=== PATIENT | female | born 1985 | race Two or more races ===

== ENCOUNTER 2021-12-12 23:37 | Emergency (ER) | payer OTHER, SELFPAY ==
--- NOTE | ~2021-12-12 | XR_ITS ---
EXAMINATION: XR ANKLE, LEFT CLINICAL INFORMATION: Fall. COMPARISON: None TECHNIQUE: AP, lateral, and mortise views of the left ankle. FINDINGS: Significant soft tissue swelling around the ankle. Asymmetric widening of the medial clear space of the ankle mortise with a tiny osseous fragment inferior to the medial malleolus raising the possibility of an avulsion injury. No other fractures. XR/XR ankle LT 2V IMPRESSION: Asymmetric widening of the medial clear space concerning for disruption of the ankle mortise. Recommend correlation with mortise stress views if possible. Questionable tiny avulsion injury of the medial malleolus.
--- NOTE | ~2021-12-12 | XR_ITS ---
EXAMINATION: XR ANKLE, LEFT CLINICAL INFORMATION: Fall, additional views COMPARISON: 12/13/2021 TECHNIQUE: AP, lateral, and mortise views of the left ankle. XR/XR ankle LT 2V FINDINGS/IMPRESSION: There is borderline widening of the medial clear space, similar to prior, which may reflect ligamentous injury. Redemonstrated tiny osseous density adjacent to the tip of the medial malleolus. Soft tissue swelling redemonstrated, most prominent laterally.
[2021-12-13 00:07] VITALS: BP 133/80; PULSE 97; RESP 16; TEMP 36.9; O2SAT 96; BMI 49.1
--- NOTE | 2021-12-13 00:34 | ED_ITS ---
HPI - Extremity Injury (Lower) General Chief Complaint: Extremity Injury, Lower Stated Complaint: left leg swollen, fall in shower Time Seen by Provider: 12/13/21 00:34 History of Present Illness HPI Narrative: Patient 36 years old status post accidental fall complaining of pain to the left ankle. There is no head injury there is no nausea no vomiting. Does not think she is . She has not been sexually active since she burped. Patient from home. No head injury. The pain is worsened with movement of the ankle. Unable to bear weight. Patient from home. Related Data Previous Rx's Medication Instructions Recorded ibuprofen 400 mg tablet 400 mg PO Q6H PRN #20 tab 12/13/21 Allergies Allergy/AdvReac Type Severity Reaction Status Date / Time No Known Allergies Allergy Verified 12/13/21 00:41 Review of Systems Review of Systems: Positive pain to the left ankle No bowel urinary incontinence No focal weakness Yes all other systems are reviewed and are negative FOR[facility], [facility] Past Medical History Attestation statement: The following information was validated with the patient. Social History Social History Advance Directives: No Advance Directives Information Provided: No Physical Exam Vital Signs: Vital Signs: Last Vital Signs Temp 98.5 F 12/13/21 00:07 Pulse 97 12/13/21 00:07 Resp 16 12/13/21 00:07 BP 133/80 12/13/21 00:07 Pulse Ox 96 12/13/21 00:07 BMI result Body Mass Index 49.1 Appearance: Alert. Oriented X3. No acute distress. Eyes: Pupils equal, round and reactive to light. ENT: Pharynx normal. Neck: Normal inspection. Neck supple. No lymph nodes noted. No crepitus CVS: Normal heart rate and rhythm. Pulses normal. Normal S1 and S2 Respiratory: No respiratory distress. Breath sounds normal. No Wheezing. No rales Abdomen: Soft and nontender. No rigidity. No distention. good BS x4 Skin: Skin warm and dry. Normal skin color. Normal skin turgor. Extremities: No lower extremity edema. Neurovascular intact to all extremities. Positive swelling to the left ankle there is pain on palpation of the lateral malleolus. No Lacerations. No Rash Neuro: Oriented X 3. No motor deficit. No sensory deficit. Moving all extermities. No slurred speech MDM - Extremity Injury (Lower) MDM Narrative Medical decision making narrative: Positive swelling to the lateral malleolus pain on palpation of the posterior malleolus. Patient's x-ray showed a possible widening of the mortise. Will place in the Aircast and crutches. Will have patient follow nonweightbearing. Ortho follow-up. In stable condition. Differential Diagnosis Differential diagnosis: Likely ankle sprain and strain Lab Data Attestation: I reviewed the patient's lab results. Discharge Plan Discharge Clinical Impression: Ankle sprain and strain, Ankle fracture Patient Disposition: Home, Self-Care Instructions: Ankle Sprain (DC), Sprain (ED), R.I.C.E. Treatment (ED), Ankle Fracture (DC) Additional Instructions: Air cast and crutches for comfort. Ice. Motrin for pain. Nonweightbearing. Follow-up with orthopedic on an outpatient basis Prescriptions: New ibuprofen 400 mg tablet 400 mg PO Q6H PRN (Reason: pain) Qty: 20 0RF Referrals: Alan Ross MD [Physician] - 2 days
== END 2021-12-13 02:13 | disposition home or self-care (01) ==
LOC: HO.ED 12-13 00:43
PROVIDERS: Emergency Provider Emergency Medicine Emergency Medical Services
DX: S82.55XA Nondisplaced fracture of medial malleolus of left tibia, initial encounter for closed fracture (principal); S93.492A Sprain of other ligament of left ankle, initial encounter; S96.912A Strain of unspecified muscle and tendon at ankle and foot level, left foot, initial encounter; W18.2XXA Fall in (into) shower or empty bathtub, initial encounter; Y93.E1 Activity, personal bathing and showering; Y92.031 Bathroom in apartment as the place of occurrence of the external cause; Y99.9 Unspecified external cause status
CPT/HCPCS: 73600; 99283

== ENCOUNTER 2021-12-20 11:16 | Emergency (ER) | payer OTHER, SELFPAY ==
--- NOTE | 2021-12-20 12:29 | PC.NURSE ---
Patient stated she had been sent in by primary care doctor for a cast to ankle , unsatisfied with interactions with orthopedics followup .Patient refused vitals and initial assessment to be done by nurse . She stated she had been seen a week ago and her ankle had gotten worse demanded a cast to be placed . I explained that she would need to be assessed by provider that was on today and that we do not place casts in the ED but if the provider determines the need we would place a splint and she could follow up with orthopedics for cast placement . She felt she would be wasting her time getting reevaluated and not having a cast placed in the ED . Patient preceded to get up with crutches and walk out of ED department.
== END 2021-12-20 12:30 | disposition left against medical advice (07) ==
LOC: HO.ED 12:44
PROVIDERS: Emergency Provider Emergency Medicine
DX: M79.604 Pain in right leg (principal)
CPT/HCPCS: 99281